=== PATIENT | female | born 1945 | race Caucasian/White ===

== ENCOUNTER 2018-12-20 01:43 | Inpatient (IN) | payer OTHER ==
[~2018-12-20] VITALS: Ht 160 cm; Wt 98.9 kg
--- NOTE | 2018-12-20 01:55 | NUR ---
EKG IN PROGRESS
--- NOTE | 2018-12-20 02:11 | NUR ---
PT PRESNETS TO THE ED WITH NAUSEA AND CHEST PAIN UNPROVOKED AFTER EATING TOMATOES AND WATER. PT VEBRLAIZED THE PAIN HAS SINCE SUBSIDED AND DENEIS AND CURRENT PAIN OR NAUSEA. PT EXPRESSED CHILLS AND SWEATS THROUGHOUT BODY AT THAT TIME. PT IS A/O X 4 SPEECH MOOD AFFECT WNL. HX OF HTN, DM. PT NAD RESPIRATIONS E/U. PT IS ABLE TO COMMUNICATE WITHOUT DIFFICULTY. PT PLACED ON METER SETTER PULSE OX AND EKG COMPLETED.
--- NOTE | 2018-12-20 02:14 | NUR ---
LAB AT BEDSIDE
[2018-12-20 02:22] LABS: BASOPHIL % 0.5 % (0-2); PLATELET COUNT 202 x10^3mcL (130-400); RED CELL DISTRIBUTION WIDTH 14.2 % (11.5-14.5)
[2018-12-20 02:31] LABS: CALCIUM 8.8 mg/dL (8.5-10.1); CARBON DIOXIDE 28.9 mmol/L (21-32); CHLORIDE SERUM 103 mmol/L (98-107); CREATININE SERUM 0.7 mg/dL (0.6-1.0); GLUCOSE SERUM 71 mg/dL (74-106); POTASSIUM SERUM 3.9 mmol/L (3.5-5.1); SODIUM SERUM 140 mmol/L (136-145)
[2018-12-20 02:37] LABS: ALBUMIN 3.9 g/dL (3.4-5.0); ALKALINE PHOSPHATASE 113 U/L (46-116); ALT/SGPT 47 U/L (14-59); AST/SGOT 48 U/L (15-37); BILIRUBIN TOTAL 0.47 mg/dL (0.20-1.00); CHOLESTEROL 174 mg/dL (<200); HDL CHOLESTEROL 54 mg/dL (40-60); PHOSPHOROUS 3.8 mg/dL (2.5-4.9)
[2018-12-20 02:38] LABS: TOTAL PROTEIN, SERUM 8.4 g/dL (6.4-8.2)
[2018-12-20] MEDS ORDERED: GLYBURIDE5 MG PO (03:06)
[2018-12-20] MEDS ORDERED: BAYER ASPIRIN R81 MG PO (03:07)
[2018-12-20] MEDS ORDERED: LOSARTAN POTASS50 M1 PO (03:07)
[2018-12-20] MEDS ORDERED: PRAVASTATIN SOD10 M1 PO (03:07)
[2018-12-20] MEDS ORDERED: METFORMIN HCL850 MG PO (03:07)
--- NOTE | 2018-12-20 03:10 | NUR ---
DR BANDA INFORMED IF BLOOD PRESSURE VALUES.
--- NOTE | 2018-12-20 03:24 | NUR ---
PT GIVEN MEDICATIONS ORDERED. NITRO APPLIED TO L CHEST WALL. NAD RESPIRATIONS E/U. PT SPEAKS IN CLEAR SENTENCES. DAUGHTER AT BEDSIDE, PT GIVEN BLANKET FOR COMFORT. BELONINGINS AND MEDS LIST COMPLETED. WILL CONTINUE TO MONITOR
--- NOTE | 2018-12-20 04:05 | NUR ---
RECEIVED PT FROM ED VIA [facility] ACCOMPANIED BY NURSE. PT ABLE TO AMBULATE FROM [place] TO BED WITHOUT ISSUE, GAIT STRONG AND STEADY. DAUGHTER, RACHEL AT BEDSIDE. PT WAS BROUGHT TO ED BY DAUGHTER DUE TO CP, PALPITATION, NAUSEA, SOB CHILLS, AND FEELING COLD. AA/OX4, ABLE TO MAKE NEEDS KNOWN, SPEECH CLEAR AND APPROPRIATE. NSR TO TELE #18, DENIES CP, HR 83. PULSES PRESENT AND EQUAL THROUGHOUT, +1 EDEMA NOTED TO B/L FEET. BREATHING ON RA, EVEN AND UNLABORED, DENIES SOB OR DYSPNEA AT THIS TIME, LUNGS CTA, O2 SAT 98% ABD ROUND AND SOFT, NONTENDER, DENIES N/V/D, LAST BM YESTERDAY, NORMAL ANF FORMED. FREELY VOIDS URINE WITHOUT ISSUE. AMBULATORY AND ABLE TO REPOSITION SELF IN BED. SKIN CDI. IV TO RH IN PLACE, DRY, PATENT, INTACT, S/L AT THIS TIME, NO PAIN, REDNESS OR SWELLING WHEN FLUSHED WITH NS. ORIENTED PT TO ROOM AND CALL LIGHT. COMFORT AND SAFETY MEASURES INITIATED. ALL NEEDS ASSESSED AND ATTENDED TO. CALL LIGHT WITHIN REACH. WILL CONTINUE TO MONITOR
[2018-12-20 04:19] VITALS: BP 140/59
[2018-12-20 04:34] LABS: microscopic required? YES; urine erythrocyte TRACE (NEGATIVE)
[2018-12-20 04:43] LABS: T3 TOTAL 1.35 ng/mL
[2018-12-20 04:45] LABS: AMPHETAMINE QUAL UR NONE DETECTED (See below)
[2018-12-20 04:47] LABS: FREE T4 1.16 ng/dL (0.76-1.46); FREE THYROXINE INDEX 3.4 ug/dL (1.4-4.5); T4(THYROXINE) 10.6 ug/dL (4.7-13.3)
--- NOTE | 2018-12-20 05:00 | NUR ---
SINUS ARRHYTMIA TO TELE #18, HR 93. PT AMBULATED TO BATHROOM, BACK IN BED AT THIS TIME WITHOUT INCIDENT. DR. MARTINEZ MADE AWARE, NO FURTHER ORDERS. DENIES CP, PRESSURE OR DISCOMFORT AT THIS TIME. NO ACUTE DISTRESS OBSERVED
--- NOTE | 2018-12-20 05:12 | NUR ---
PT'S MG 1.6. DR. MARTINEZ MADE AWARE NO COVERAGE YET. WILL ANTICPATE NEW ORDERS
--- NOTE | 2018-12-20 05:33 | NUR ---
NSR TO TELE #18, HR 74.
--- NOTE | 2018-12-20 06:06 | NUR ---
NO SIGNIFICANT CHANGES TO REPORT, PT COMPLIED WITH NURSING CARE THROUGHOUT THE SHIFT WITH NO ACUTE EVENS OVERNIGHT. NO ACUTE DISTRESS OBSERVED AT THIS TIME, LAYING IN BED, BREATHING EVEN AND UNLABORED. COMFORT AND SAFETY MEASURES MAINTAINED. ALL NEEDS ASSESSED AND ATTENDED TO. CALL LIGHT WITHIN REACH. WILL CONTINUE TO MONITOR AND ENDORSE CARE TO DAY SHIFT NURSE
[2018-12-20 08:38] VITALS: BP 144/59
--- NOTE | 2018-12-20 09:12 | NUR ---
AT 0710 - RECEIVED PATIENT FROM NIGHT NURSE. AWAKE, ALERT AND APPEARS ORIENTED. DENIES ANY PAIN. MONITOR SHOWING SINUS RHYTHM; RATE 70'S. RESPIRATIONS REGULAR. ON ROOM AIR. IV SALINE LOCKED. AT 0740 - SITTING ON SIDE OF BED FOR BREAKFAST. SON AT BEDSIDE. SPOKE WITH PATIENT AND SON ABOUT PLAN OF CARE AND EXPECTATIONS. SON EXPESSED CONCERN THAT PATIENT IS "NOT TAKING CARE OF HER DIABETES". AT 0900 - DIABETES EDUCATION INITIATED. PATIENT PROVIDED WITH PRINTED MATERIAL IN [place] ABOUT DIABETES, DIET AND PREVENTION OF COMPLICATIONS.
--- NOTE | 2018-12-20 10:00 | NUR ---
SEEN BY DR PRASAD DURING MORNING ROUNDS. MEDICAL TEAM DOCTORS AND ANGELO BRIDGES ALSO PRESENT. SPOKE WITH PATIENT AND FAMILY ABOUT PLAN OF TREATMENT. DR SINCLAIR TRANSLATED IN [place]. PLAN TO DC HOME TODAY.
--- NOTE | 2018-12-20 11:17 | NUR ---
RECEIVED CALL FROM LAB WITH ELEVATED TROPONIN LEVEL OF 0.274. CALL PLACED FOR DR SANFORD TO NOTIFY.
--- NOTE | 2018-12-20 11:30 | NUR ---
RECEIVED NEW ORDERS FOR LOVENOX AND CARDIOLOGY CONSULT.
[2018-12-20 11:38] VITALS: BP 120/56
--- NOTE | 2018-12-20 13:51 | NUR ---
AT 1142 - BLOOD GLUCOSE LEVEL 44. PATIENT IS AWAKE, ALERT AND ORIENTED. GIVEN D50 PER EMAR. DAUGHTER AT BEDSIDE. AT 1150 - FIRST DOSE LOVENOX ADMINISTERED PER EMAR. PATIENT PLACED ON O2 VIA NC AT 2 L/MIN BECAUSE OF ELEVATED TROPONIN LEVEL. AT 1206 - BLOOD GLUCOSE LEVEL NOW 127. PATIENT WILL EAT LUNCH. A 1330 - AMBULATED TO BATHROOM AND BACK TO BED. TOLERATED WELL. HAS EATEN LUNCH. NO C/O CHEST PAIN.
--- NOTE | 2018-12-20 15:44 | NUR ---
RESTING QUIETLY. DENIES ANY CHEST PAIN. RECEIVED ORDERS FOR PATIENT TO TRANSFER TO HIGHER LEVEL OF CARE FOR CARDIAC CATH.
[2018-12-20 16:26] VITALS: BP 139/47
--- NOTE | 2018-12-20 18:01 | NUR ---
SPOKE WITH PATIENT AND FAMILY ABOUT PLAN OF CARE. EXPLAINED TO PATIENT'S SON REASON FOR TRANSFER TO HIGHER LEVEL OF CARE. PATIENT DENIES ANY CHEST PAIN. MONTIOR SHOWING SINUS RHYTHM; RATE 80'S. VSS AND WNL. EATING DINNER. BLOOD GLUCOSE PRIOR TO MEAL, WAS 90. WILL ENDORSE CARE TO NIGHT NURSE.
--- NOTE | 2018-12-20 19:25 | NUR ---
AOX4. TELE #18, SR. DENIES CP. LUNGS CLEAR ON NC @ 2L. PULSES PALPABLE. EDEMA TO BUE AND BLE. BOWEL SOUNDS ACTIVE. DENIES N/V. VOIDS FREELY. AMBULATORY. SKIN INTACT. DENIES PAIN. SL TO , PATENT, CDI. BED IN LOWEST POSITION, 2 SIDE RAILS UP, CALL LIGHT IN REACH. INSTRUCTED TO CALL FOR ASSISTANCE.
[2018-12-20 20:59] VITALS: BP 129/54
[2018-12-21] VITALS (8 sets, daily range): BP systolic 131–166; BP diastolic 56–88
--- NOTE | 2018-12-21 02:33 | NUR ---
RESTING IN BED WITH EYES CLOSED. BREATHING EVEN AND UNLABORED. NO ACUTE DISTRESS NOTED. WILL CONTINUE TO MONITOR.
--- NOTE | 2018-12-21 06:19 | NUR ---
NO C/O CP OVERNIGHT. NO ACUTE CHANGES. NO ACUTE DISTRESS NOTED. WILL ENDORSE TO ONCOMING RN.
[2018-12-21 06:45] LABS: CALCIUM 8.7 mg/dL (8.5-10.1); CARBON DIOXIDE 29.2 mmol/L (21-32); CHLORIDE SERUM 103 mmol/L (98-107); CREATININE SERUM 0.6 mg/dL (0.6-1.0); GLUCOSE SERUM 101 mg/dL (74-106); POTASSIUM SERUM 3.8 mmol/L (3.5-5.1); SODIUM SERUM 139 mmol/L (136-145)
--- NOTE | 2018-12-21 07:10 | NUR ---
RECIEVED PT FROM LOAF COUNTER NURSE. PT SLEEPING IN BED, AROUSABLE, RESPIRATIONS EVEN AND UNLABORED ON NC AT 2L/MIN. NO ACUTE DISTRESS NOTED. IV SALINE LOCK TO RIGHT HAND WITH NO ERYTHEMA OR SWELLING. BED IN LOWEST POSITION AND CALL LIGHT WITHIN REACH. WILL CONTINUE TO MONITOR.
[2018-12-21 07:39] LABS: BASOPHIL % 0.5 % (0-2); PLATELET COUNT 177 x10^3mcL (130-400); RED CELL DISTRIBUTION WIDTH 14.4 % (11.5-14.5)
--- NOTE | 2018-12-21 13:10 | NUR ---
PT SITTING AT EDGE OF BED HAVING LUNCH. NO ACUTE DISTRESS NOTED AT THIS TIME. FAMILY MEMBER AT BEDSIDE. BED IN LOWEST POSITION AND CALL LIGHT WITHIN REACH. WILL CONTINUE TO MONITOR.
--- NOTE | 2018-12-21 19:30 | NUR ---
AOX4. TELE #18, SR. DENIES CP. LUNGS CLEAR ON NC @ 2L. PULSES PALPABLE. EDEMA TO BUE. BOWEL SOUNDS ACTIVE. DENIES N/V. VOIDS FREELY. AMBULATORY. SKIN INTACT. DENIES PAIN. SL TO , PATENT, CDI. BED IN LOWEST POSITION, 2 SIDE RAILS UP, CALL LIGHT IN REACH. INSTRUCTED TO CALL FOR ASSISTANCE.
--- NOTE | 2018-12-22 01:12 | NUR ---
RESTING IN BED WITH EYES CLOSED. BREATHING EVEN AND UNLABORED. NO ACUTE DISTRESS NOTED. WILL CONTINUE TO MONITOR.
[2018-12-22 04:53] VITALS: BP 173/64
[2018-12-22 06:43] VITALS: BP 141/66
--- NOTE | 2018-12-22 06:45 | NUR ---
BP @ 0500, 173/64. ADMINISTERED PRN HYDRALAZINE PO @ 0530. BP RECHECK @ 0645, 141/66. WILL ENDORSE TO ONCOMING RN.
--- NOTE | 2018-12-22 07:04 | NUR ---
RECEIVED PT FROM PHYSICAL EDUCATION PROFESSOR NURSE. PT SLEEPING IN BED, AROUSABLE, RESPIRATIONS EVEN AND UNLABORED ROOM AIR. NO ACUTE DISTRESS NOTED. ON TELE 18 SHOWING SR WITH DEPRESSED ST, HR: 66. IV SALINE LOCK TO RIGHT HAND WITH NO ERYTHEMA OR SWELLING. BED IN LOWEST POSITION AND CALL LIGHT WITHIN REACH. WILL CONTINUE TO MONITOR.
[2018-12-22 08:05] VITALS: BP 148/65
--- NOTE | 2018-12-22 12:24 | NUR ---
PT SITTING AT EDGE OF BED USING TELEPHONE. NO ACUTE DISTRESS NOTED. DENIES CHEST PAIN OR SOB. BED IN LOWEST POSITION AND CALL LIGHT WITHIN REACH. FAMILY MEMBER AT BEDSIDE. WILL CONTINUE TO MONITOR.
[2018-12-22 12:53] VITALS: BP 153/62
--- NOTE | 2018-12-22 17:05 | NUR ---
PT SITTING AT EDGE OF BED, AA0X4. NO ACUTE DISTRESS NOTED. DENIED CHEST PAIN OR SOB. RESP EVEN AND UNLABORED ON NC AT 2L/MIN. IV SALINE LOCK TO RIGHT HAND WITH NO ERTHEMA OR SWELLING. BED IN LOWEST POSITION AND CALL LIGHT WITHIN REACH. FAMILY PRESENT AT BEDSIDE. WILL ENDORSE TO ONCOMING NURSE.
[2018-12-22 17:36] VITALS: BP 156/63
--- NOTE | 2018-12-22 19:25 | NUR ---
AOX4. TELE #18, SR. DENIES CP. LUNGS CLEAR ON NC @ 2L. PULSES PALPABLE. EDEMA TO BUE. BOWEL SOUNDS ACTIVE. VOIDS FREELY. AMBULATORY. SKIN INTACT. DENIES PAIN. SL TO , PATENT, CDI. BED IN LOWEST POSITION, 2 SIDE RAILS UP, CALL LIGHT IN REACH. INSTRUCTED TO CALL FOR ASSISTANCE.
[2018-12-22 20:00] VITALS: BP 136/95
--- NOTE | 2018-12-23 02:03 | NUR ---
RESTING IN BED WITH EYES CLOSED. BREATHING EVEN AND UNLABORED. NO ACUTE DISTRESS NOTED. WILL CONTINUE TO MONITOR.
[2018-12-23 05:04] VITALS: BP 155/71
--- NOTE | 2018-12-23 06:22 | NUR ---
DENIES CP THROUGHOUT SHIFT. NO ACUTE CHANGES NO ACUTE DISTRESS NOTED. WILL ENDORSE TO ONCOMING RN.
--- NOTE | 2018-12-23 07:07 | NUR ---
RECEIVED REPORT FROM ALEJANDRA NICOLE. PT RESTING COMFORTABLY IN BED. SALINE LOCK TO RT HAND IS PATENT AND INTACT. NO REDNESS OR PAIN. PT ON O2 2L NC. NO C/O SOB AND NO DISTRESS NOTED. TELE # [address] PT DENIES CHEST PAIN. ALL QUESTIONS AND CONCERNS ADDRESSED.
[2018-12-23 09:43] VITALS: BP 150/55
--- NOTE | 2018-12-23 09:58 | NUR ---
IN TO SEE PATIENT. PTS DAUGHTER REQUESTING DOCUMENTATION OF HOSPITALIZATION FOR GRANDCHILD USE. INFORMED PT FAMILY THAT SUCH DOCUMENTATION CANNOT BE GIVEN.
--- NOTE | 2018-12-23 11:48 | NUR ---
IN TO SEE PATIENT AND CHECK BLOOD GLUCOSE. GLUCOSE IS 140. NO ACTION REQUIRED.
[2018-12-23 12:30] VITALS: BP 159/56
--- NOTE | 2018-12-23 17:10 | NUR ---
IN TO SEE PATIENT AND CHECK BLOOD GLUCOSE. GLUCOSE IS 181. 3 UNITS REGULAR INSULIN ADMINISTERED.
[2018-12-23 17:29] VITALS: BP 155/63
--- NOTE | 2018-12-23 19:10 | NUR ---
RECEIVED PT IN BED WITH VISITOR AT BEDSIDE.AAOX4.EMIRATI SPEAKING.IV SITE PATENT AND INTACT. BED IN LOWEST POSITION,CALL LIGHT WITHIN REACH. WILL CONTINUE TO MONITOR.
[2018-12-23 19:25] VITALS: BP 155/63
--- NOTE | 2018-12-23 19:33 | NUR ---
REPORT GIVEN TO BREANNE NICOLE. PT RESTING COMFORTABLY IN BED WITH FAMILY AT BEDSIDE. ALL NEEDS MET. ALL QUESTIONS AND CONCERNS ADDRESSED. ALL CARES ENDORSED.
--- NOTE | 2018-12-23 19:48 | NUR ---
CALLED [facility] AND GAVE REPORT TO KALEB NICOLE. ALL QUESTIONS AND CONCERNS ADDRESSED. ALL CARES ENDORSED. TRANSFER TO OCCUR TONIGHT VIA [facility]. ENDORSED TO BREANNE NICOLE TO INFORM [facility] TO STOP AT [facility] TO ADMIT PATIENT.
--- NOTE | 2018-12-23 22:13 | NUR ---
PER DR MICHELLE GALEAS [facility].
--- NOTE | 2018-12-23 22:48 | NUR ---
PER [facility] THEY WILL BE LATE DUE TO MULTIPLE CALLS FROM 911. APPLICATIONS SUPPORT LEAD IN [facility] MADE AWARE.
--- NOTE | 2018-12-23 23:30 | NUR ---
PT D/C WITH THE [facility].PT WERE AAOX4.NO SOB NOTED.DENIES ANY PAIN OR PRESSURE. ID BADGE REMOVED. DISCHARGE PACKET AND INSTRUCTON WERE GIVEN. PT AND FAMILY VERBALIZED UNDERSTANDING.
== END 2018-12-23 23:31 | disposition short-term general hospital (02) | DRG 190 ==
LOC: ED 01:43 → DU 03:08
PROVIDERS: Emergency Medicine; ADMIT Family Medicine
DX: I21.9 Acute myocardial infarction, unspecified (principal); N17.0 Acute kidney failure with tubular necrosis; K21.9 Gastro-esophageal reflux disease without esophagitis; I10 Essential (primary) hypertension; R80.9 Proteinuria, unspecified; E78.5 Hyperlipidemia, unspecified; Z79.84 Long term (current) use of oral hypoglycemic drugs; Z79.82 Long term (current) use of aspirin; E11.65 Type 2 diabetes mellitus with hyperglycemia; I42.8 Other cardiomyopathies
CPT/HCPCS: 82962; 84439; J1650; J3490; Q0092